=== PATIENT | male | born 1965 | race Caucasian/White ===

== ENCOUNTER → 2017-04-13 | Outpatient (CLI) | payer BC ==
[~2017-04-13] VITALS: Ht 182.9 cm; Wt 84.0 kg
[~2017-04-13] MED LIST: ASPIRIN325 MG PO; LIPITOR40 MG PO; LOPRESSOR25 MG PO
== END | disposition home or self-care (01) ==
LOC: AMB 12:37
PROC: 0DBP8ZX Excision of Rectum, Via Natural or Artificial Opening Endoscopic, Diagnostic (ICD-10-PCS; principal; 2017-04-13)
DX: Z12.11 Encounter for screening for malignant neoplasm of colon (principal); K62.1 Rectal polyp; Z87.891 Personal history of nicotine dependence; Z79.82 Long term (current) use of aspirin
CPT/HCPCS: 88305; J2250; J3010